=== PATIENT | female | born 1990 | race Caucasian/White ===

== ENCOUNTER 2020-05-25 20:12 | Emergency (ER) | payer OTHER ==
[2020-05-25] MEDS ORDERED: TYLENOL 325 MG PO STA (20:40)
[2020-05-25] MEDS ORDERED: Sodium Chloride 0.9% 1000 ML 1,000 ML IV STA (20:40)
[2020-05-25] MEDS ORDERED: MORPHINE SULFATE 4 MG INJ IV ONE (20:42)
[2020-05-25] MEDS ORDERED: PROTONIX 40 MG IV IV ONE ×2 (20:42→20:50)
[2020-05-25] MEDS ORDERED: Sodium Chloride 0.9% 1000 ML 1,000 ML ONE (20:50)
[2020-05-25] MEDS ORDERED: MORPHINE SULFATE 4 MG INJ ONE (20:51)
[2020-05-25] MEDS ORDERED: TYLENOL 325 MG ONE (20:51)
--- NOTE | 2020-05-25 21:04 | ERPHSYRPT ---
- History of Present Illness Time Seen by Provider: 05/25/20 20:19 Source: patient, EMS Exam Limitations: no limitations Patient Subjective Stated Complaint: pt c/o fever, vomiting, headache, body aches, fatigue Triage Nursing Assessment: pt has cough, fever x3 days, vomiting, headache, body aches, fatigue and diarrhea. Lungs clear, heart tones reg, abd lg/obese with hypoactive bs x4 quad, nontender. Temp 103.9. Pt received zofran 4mg IVP in route via EMS. Physician History: 30 years old morbidly obese female presented in the ER with chief complaint of flulike symptoms with headache, congestion, sore throat, dry cough, nausea and occasional abdominal cramping. She denies any abdominal pain now. Denies any c hest pain or shortness of breath. Having generalized body aches and fatigue. She has diarrhea at her baseline which is not any worse than usual. She vomited once on the way to the ER. Denies any sick contact. Patient has a fever of 103 on presentation. Timing/Duration: day(s) (2), gradual onset, worse Cough Quality/Degree: mild, dry cough Possible Cause: no prior episodes Associated Symptoms: fever, chills, chest pain/soreness, cough, dizziness, headache, nasal congestion Allergies/Adverse Reactions: No Known Drug Allergies Allergy (Unverified 05/25/20 20:38) Home Medications: Fluoxetine HCl 40 mg PO DAILY 05/25/20 [History] Hyoscyamine Sulfate 0.125 mg [Anaspaz 0.125 mg] 1 tab SL Q6H PRN PRN 05/25/20 [History] Metformin HCl Xr 500 mg [Glucophage XR 500 MG] 1,000 mg PO HS 05/25/20 [History] Omeprazole 40 mg PO DAILY 05/25/20 [History] Tizanidine HCl 4 mg [Zanaflex 4 MG] 4 mg PO HS PRN PRN 05/25/20 [History] Hx Tetanus, Diphtheria Vaccination/Date Given: Yes Hx Influenza Vaccination/Date Given: No Hx Pneumococcal Vaccination/Date Given: No Immunizations Up to Date: Yes Travel Risk - International Travel Have you traveled outside of the country in past 3 weeks: No - Coronavirus Screening Symptoms: Fever, Cough: New Onset, Vomiting/Diarrhea, Headaches/Body Aches/Fatigue Close contact with a COVID-19 positive Pt in past 14-21 Days: No - Review of Systems Constitutional: Fever, Chills, Fatigue, Weakness Eyes: No Symptoms Ears, Nose, & Throat: Nose Congestion Respiratory: Cough, Dyspnea Abdominal/Gastrointestinal: No Symptoms, Nausea, Vomiting, Diarrhea Genitourinary Symptoms: No Symptoms Musculoskeletal: Myalgias Skin: No Symptoms Neurological: No Symptoms Psychological: No Symptoms Endocrine: No Symptoms Hematologic/Lymphatic: No Symptoms Immunological/Allergic: No Symptoms - Past Medical History Pertinent Past Medical History: Yes Neurological History: No Pertinent History ENT History: No Pertinent History Cardiac History: No Pertinent History Respiratory History: No Pertinent History Endocrine Medical History: Other Musculoskeletal History: No Pertinent History GI Medical History: Gallbladder Disease History: No Pertinent History Psycho-Social History: No Pertinent History Female Reproductive Disorders: No Pertinent History Other Medical History: fibromyalgia - Past Surgical History Past Surgical History: Yes Neuro Surgical History: No Pertinent History Cardiac: No Pertinent History Respiratory: No Pertinent History Gastrointestinal: No Pertinent History Genitourinary: No Pertinent History Musculoskeletal: Orthopedic Surgery Female Surgical History: No Pertinent History Other Surgical History: EMG. Rt knee meniscus. colooscopy - Social History Smoking Status: Never smoker Exposure to second hand smoke: No Drug Use: none Patient Lives Alone: No - Female History Hx Now: No - Nursing Vital Signs Nursing Vital Signs: Initial Vital Signs Temperature 103.9 F 05/25/20 20:13 Pulse Rate 117 H 05/25/20 20:13 Respiratory Rate 24 05/25/20 20:13 Blood Pressure 188/115 05/25/20 20:13 O2 Sat by Pulse Oximetry 90 L 05/25/20 20:13 Pain Scale Pain Intensity 2 - Physical Exam General Appearance: no apparent distress, alert Eye Exam: PERRL/EOMI, eyes nml inspection Ears, Nose, Throat Exam: TMs normal, pharyngeal erythema Neck Exam: normal inspection, non-tender, supple, full range of motion Respiratory Exam: normal breath sounds, lungs clear Cardiovascular Exam: normal heart sounds, tachycardia Gastrointestinal/Abdomen Exam: soft, normal bowel sounds, No tenderness Back Exam: normal inspection, normal range of motion, No CVA tenderness Extremity Exam: normal inspection, normal range of motion, pelvis stable Neurologic Exam: alert, oriented x 3, cooperative, 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 Skin Exam: normal color SpO2 Interpretation: normal SpO2: 90 O2 Delivery: Room Air - Course EKG Interpreted by Me: RATE ([id number]), Sinus Tach, NORMAL AXIS, NORMAL INTERVALS, NORMAL QRS Ordered Tests: Active Orders 24 hr Category Date Time Status Doctor Of Pharmacy STAT Care 05/25/20 20:41 Active IV Insertion STAT Care 05/25/20 20:40 Active CHEST 1 VIEW (PORTABLE) Stat Exams 05/25/20 20:41 Taken BLOOD CULTURE Stat Lab 05/25/20 21:00 Received CBC W DIFF Stat Lab 05/25/20 21:00 Completed CMP Stat Lab 05/25/20 21:00 Completed HCG QUALITATIVE,SERUM Stat Lab 05/25/20 21:41 Completed INFLUENZA A+B CATHERINE Stat Lab 05/25/20 21:27 Completed Lactic Acid Stat Lab 05/25/20 20:50 Completed Manual Differential NC Stat Lab 05/25/20 21:00 Completed UA W/RFX UR CULTURE Stat Lab 05/25/20 20:41 Ordered Medication Summary Discontinued Medications Generic Name Dose Route Start Last Admin Trade Name Payam PRN Reason Stop Dose Admin Acetaminophen 975 mg 05/25/20 20:40 05/25/20 20:55 Tylenol 325 Mg PO 05/25/20 20:41 975 mg STAT STA Administration Acetaminophen Confirm 05/25/20 20:51 Tylenol 325 Mg Administered 05/25/20 20:52 Dose 975 mg .ROUTE .STK-MED ONE Doxycycline Hyclate 100 mg 05/25/20 22:45 Vibramycin 100 Mg PO 05/25/20 22:46 STAT ONE Sodium Chloride 1,000 mls @ 999 mls/hr 05/25/20 20:40 05/25/20 20:59 Sodium Chloride 0.9% 1000 Ml IV 05/25/20 21:40 999 mls/hr .Q1H1M STA Administration Sodium Chloride Confirm 05/25/20 20:50 Sodium Chloride 0.9% 1000 Ml Administered 05/25/20 20:51 Dose 1,000 mls @ ud .ROUTE .STK-MED ONE Morphine Sulfate 4 mg 05/25/20 20:42 05/25/20 20:56 Morphine Sulfate 4 Mg Inj IV 05/25/20 20:43 4 mg STAT ONE Administration Morphine Sulfate Confirm 05/25/20 20:51 Morphine Sulfate 4 Mg Inj Administered 05/25/20 20:52 Dose 4 mg .ROUTE .STK-MED ONE Pantoprazole Sodium 40 mg 05/25/20 20:42 05/25/20 20:54 Protonix 40 Mg Iv IV 05/25/20 20:43 40 mg STAT ONE Administration Pantoprazole Sodium Confirm 05/25/20 20:50 Protonix 40 Mg Iv Administered 05/25/20 20:51 Dose 40 mg IV .STK-MED ONE Lab/Rad Data: Laboratory Result Diagrams 05/25/20 21:00 05/25/20 21:00 Laboratory Results 05/25/20 05/25/20 05/25/20 Range/Units 21:41 21:27 21:00 WBC (4.0-10.5) K/mm3 RBC (4.1-5.4) M/mm3 Hgb (12.0-16.0) gm/dl Hct (35-47) % MCV (78-100) fl MCH (26-32) pg MCHC (32-36) g/dl RDW (11.5-14.0) % Plt Count (150-450) K/mm3 MPV (7.5-11.0) fl Absolute Granulocytes (1.4-6.9) Sodium 136 L (137-145) mmol/L Potassium 4.0 (3.5-5.1) mmol/L Chloride 100 (98-107) mmol/L Carbon Dioxide 26 (22-30) mmol/L Anion Gap 14.1 (5-15) MEQ/L BUN 10 (7-17) mg/dL Creatinine 0.67 (0.52-1.04) mg/dL Estimated GFR > 60.0 ML/MIN Glucose 111 H (74-106) mg/dL Lactic Acid (0.4-2.0) Calcium 9.3 (8.4-10.2) mg/dL Total Bilirubin 1.60 H (0.2-1.3) mg/dL AST 71 H (14-36) U/L ALT 44 H (0-35) U/L Alkaline Phosphatase 74 (38-126) U/L Serum Total Protein 8.1 (6.3-8.2) g/dL Albumin 4.5 (3.5-5.0) g/dL Serum , Qual NEGATIVE (Negative) Influenza Type A Ag NEGATIVE (NEGATIVE) Influenza Type B Ag NEGATIVE (NEGATIVE) 05/25/20 05/25/20 Range/Units 21:00 20:50 WBC 7.8 (4.0-10.5) K/mm3 RBC 4.91 (4.1-5.4) M/mm3 Hgb 15.7 (12.0-16.0) gm/dl Hct 45.4 (35-47) % MCV 92.5 (78-100) fl MCH 32.0 (26-32) pg MCHC 34.6 (32-36) g/dl RDW 12.8 (11.5-14.0) % Plt Count 229 (150-450) K/mm3 MPV 10.7 (7.5-11.0) fl Absolute Granulocytes 5.67 (1.4-6.9) Sodium (137-145) mmol/L Potassium (3.5-5.1) mmol/L Chloride (98-107) mmol/L Carbon Dioxide (22-30) mmol/L Anion Gap (5-15) MEQ/L BUN (7-17) mg/dL Creatinine (0.52-1.04) mg/dL Estimated GFR ML/MIN Glucose (74-106) mg/dL Lactic Acid 3.0 H (0.4-2.0) Calcium (8.4-10.2) mg/dL Total Bilirubin (0.2-1.3) mg/dL AST (14-36) U/L ALT (0-35) U/L Alkaline Phosphatase (38-126) U/L Serum Total Protein (6.3-8.2) g/dL Albumin (3.5-5.0) g/dL Serum , Qual (Negative) Influenza Type A Ag (NEGATIVE) Influenza Type B Ag (NEGATIVE) - Progress Progress: improved, re-examined Air Movement: good Blood Culture(s) Obtained: Yes Counseled pt/family regarding: lab results, diagnosis, need for follow-up, rad results - Departure Departure Disposition: Home Clinical Impression: Viral syndrome Condition: Stable Critical Care Time: No Referrals: HANNAH PRYOR MD [ACTIVE STAFF] - Follow Up with PCP/3 days Instructions: Fever, Adult (DC) Additional Instructions: Take Tylenol as needed for fever. Keep yourself well-hydrated. Follow-up with primary care for reevaluation. Return to ER for any worsening. Prescriptions: Albuterol 8 gm Mdi Hfa [Ventolin Hfa MDI] 8 gm IH Q4H #1 [email or web address] Doxycycline Hyclate 100 mg [Vibramycin 100 MG] 100 mg PO BID #14 tab
[2020-05-25 21:33] LABS: Absolute Neutrophil Ct (ANC) 5.67 (1.4-6.9); Hematocrit 45.4 % (35-47); Hemoglobin 15.7 gm/dl (12.0-16.0); Mean Cell Volume 92.5 fl (78-100); Mean Corpuscular Hgb Concent. 34.6 g/dl (32-36); Mean Platelet Volume 10.7 fl (7.5-11.0); Platelet Count 229 K/mm3 (150-450); Red Blood Count 4.91 M/mm3 (4.1-5.4); Red Cell Distribution Width 12.8 % (11.5-14.0); White Blood Count 7.8 K/mm3 (4.0-10.5)
[2020-05-25 21:47] LABS: ALBUMIN 4.5 g/dL (3.5-5.0); ALKALINE PHOSPHATASE 74 U/L (38-126); ANION GAP 14.1 MEQ/L (5-15); BLOOD UREA NITROGEN 10 mg/dL (7-17); CHLORIDE 100 mmol/L (98-107); Calcium 9.3 mg/dL (8.4-10.2); Carbon Dioxide 26 mmol/L (22-30); Creatinine 1 0.67 mg/dL (0.52-1.04); EST GLOMERULAR FILTRATION RATE > 60.0 ML/MIN; Glucose 111 mg/dL (74-106); SGOT/AST 71 U/L (14-36); SGPT/ALT 44 U/L (0-35); SODIUM 136 mmol/L (137-145); Total Protein 8.1 g/dL (6.3-8.2)
[2020-05-25 22:11] LABS: INFLUENZA A NEGATIVE (NEGATIVE); INFLUENZA B NEGATIVE (NEGATIVE)
[2020-05-25] MEDS ORDERED: Vibramycin 100 MG PO ONE (22:45)
[2020-05-25] MEDS ORDERED: Vibramycin 100 MG ONE (22:52)
[2020-05-25 23:32] LABS: Eosinophil 3 % (0.00-3.0); Lymphocytes 20 % (24-44); Monocyte 8 % (0.0-12.0); Neutrophils 69 % (36.0-66.0); Platelet Estimate NORMAL (NORMAL); Total Cells Counted 100
[2020-05-26 00:32] VITALS: BP 115/78; PULSE 88; O2SAT 96
--- NOTE | 2020-05-26 08:37 | XRAY ---
Indication: Fever and weakness. Comparison: None Portable chest demonstrates normal heart, lungs, and bony thorax with incidental mild right hemidiaphragm elevation.
== END 2020-05-26 00:38 | disposition home or self-care (01) ==
LOC: ED 20:12
DX: B34.9 Viral infection, unspecified (principal); R50.9 Fever, unspecified; R51.9 Headache, unspecified; R07.9 Chest pain, unspecified; R42 Dizziness and giddiness; R05 Cough
CPT/HCPCS: 36000; 36415; 71045; 80053; 81025; 83605; 85025; 87040; 87400; 93005; 93041; 96360; 96374; 96375; 99284; U0003; J2270; A9270-GY

== ENCOUNTER 2020-05-27 11:26 | Inpatient (IN) | payer OTHER ==
--- NOTE | 2020-05-27 12:07 | ERPHSYRPT ---
- History of Present Illness Historian: patient Exam Limitations: no limitations Patient Subjective Stated Complaint: abdominal pain with vomiting since Saturday. body aches since Saturday Triage Nursing Assessment: . Timing/Duration: day(s) (4) Activities at Onset: none Quality: aching Abdominal Pain Onset Location: generalized abdomen, flank Pain Radiation: back Severity of Pain-Max: moderate Severity of Pain-Current: moderate Modifying Factors: Improves With: vomiting Associated Symptoms: back, fever/chills, loss of appetite, nausea, vomiting, weakness Previous symptoms: same symptoms as today, recently seen, recently treated Hx Tetanus, Diphtheria Vaccination/Date Given: Yes Hx Influenza Vaccination/Date Given: No Hx Pneumococcal Vaccination/Date Given: No <LACEY LIRA - Last Filed: 05/27/20 12:47> <GENESIS DRISCOLL - Last Filed: 05/27/20 15:40> - History of Present Illness Time Seen by Provider: 05/27/20 11:45 Physician History: This is a morbidly obese white female who is 30 years old and has a history of diabetes, fibromyalgia, gastroesophageal reflux disease and returns to this emergency department because of weakness, abdominal pain, bilateral flank pain that is worsened over the last 4 days. Patient was seen in this emergency department on 05/25/2020 and was diagnosed with a viral syndrome. At that time she was having symptoms of cough, fever as high as 103.9 F, vomiting, headache, body aches, fatigue and diarrhea. Patient states now that she does not have diarrhea, her body aches have improved as has her fever. She denies shortness of breath and she denies cough. However the vomiting, abdominal pain and back p ain are persistent. Patient was tested for influenza a and B and those results were negative. She had a COVID-19 test performed 48 hours ago and the results are still pending. Patient was discharged to home on 05/25/2020 with a prescription for albuterol inhaler and doxycycline. (LACEY LIRA) Allergies/Adverse Reactions: amoxicillin [From Augmentin] Allergy (Severe, Verified 05/27/20 11:49) reports hives and trouble breathing clavulanic acid [From Augmentin] Allergy (Severe, Verified 05/27/20 11:49) reports hives and trouble breathing Home Medications: Fluoxetine HCl 40 mg PO DAILY 05/25/20 [History] Hyoscyamine Sulfate 0.125 mg [Anaspaz 0.125 mg] 1 tab SL Q6H PRN PRN 05/25/20 [History] Metformin HCl Xr 500 mg [Glucophage XR 500 MG] 1,000 mg PO HS 05/25/20 [History] Omeprazole 40 mg PO DAILY 05/25/20 [History] Tizanidine HCl 4 mg [Zanaflex 4 MG] 4 mg PO HS PRN PRN 05/25/20 [History] Travel Risk - International Travel Have you traveled outside of the country in past 3 weeks: No - Coronavirus Screening Are you exhibiting any of the following symptoms?: Yes Symptoms: Vomiting/Diarrhea, Headaches/Body Aches/Fatigue Close contact with a COVID-19 positive Pt in past 14-21 Days: No <LACEY LIRA - Last Filed: 05/27/20 12:47> - Review of Systems Constitutional: Fever, Weakness Eyes: No Symptoms Ears, Nose, & Throat: No Symptoms Respiratory: No Symptoms Cardiac: No Symptoms Abdominal/Gastrointestinal: Abdominal Pain, Nausea, Vomiting Genitourinary Symptoms: Flank Pain Musculoskeletal: No Symptoms Skin: No Symptoms Neurological: No Symptoms Psychological: No Symptoms Endocrine: No Symptoms Hematologic/Lymphatic: No Symptoms Immunological/Allergic: No Symptoms All Other Systems: Reviewed and Negative <LACEY LIRA - Last Filed: 05/27/20 12:47> - Past Medical History Pertinent Past Medical History: Yes Neurological History: No Pertinent History ENT History: No Pertinent History Cardiac History: No Pertinent History Respiratory History: No Pertinent History Endocrine Medical History: Other Musculoskeletal History: No Pertinent History GI Medical History: Gallbladder Disease History: No Pertinent History Psycho-Social History: No Pertinent History Female Reproductive Disorders: No Pertinent History Other Medical History: fibromyalgia - Past Surgical History Past Surgical History: Yes Neuro Surgical History: No Pertinent History Cardiac: No Pertinent History Respiratory: No Pertinent History Gastrointestinal: No Pertinent History Genitourinary: No Pertinent History Musculoskeletal: Orthopedic Surgery Female Surgical History: No Pertinent History Other Surgical History: EMG. Rt knee meniscus. colooscopy - Social History Smoking Status: Never smoker Exposure to second hand smoke: No Drug Use: none Patient Lives Alone: No - Female History Hx Last Menstrual Period: within last month Hx Now: No <LACEY LIRA - Last Filed: 05/27/20 12:47> - Physical Exam General Appearance: mild distress, alert, anxiety, obese Eye Exam: PERRL/EOMI, eyes nml inspection Ears, Nose, Throat Exam: normal ENT inspection, moist mucous membranes Neck Exam: normal inspection, non-tender, supple, full range of motion Respiratory Exam: normal breath sounds, lungs clear, airway intact, No chest tenderness, No respiratory distress Cardiovascular Exam: regular rate/rhythm, normal heart sounds, normal peripheral pulses Gastrointestinal/Abdomen Exam: soft, normal bowel sounds, tenderness, guarding Pelvic Exam: not done Rectal Exam: not done Back Exam: normal inspection, normal range of motion, CVA tenderness, No vertebral tenderness Extremity Exam: normal inspection, normal range of motion, pelvis stable Neurologic Exam: alert, oriented x 3, cooperative, 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, n ormal mood/affect, nml cerebellar function, nml station & gait, sensation nml Skin Exam: normal color, warm, dry Lymphatic Exam: No adenopathy SpO2 Interpretation: normal SpO2: 98 O2 Delivery: Room Air <LACEY LIRA - Last Filed: 05/27/20 12:47> - Nursing Vital Signs Nursing Vital Signs: Initial Vital Signs Temperature 98.3 F 05/27/20 11:37 Pulse Rate 81 05/27/20 11:37 Respiratory Rate 18 05/27/20 11:37 Blood Pressure 177/102 05/27/20 11:37 O2 Sat by Pulse Oximetry 98 05/27/20 11:37 Pain Scale Pain Intensity 8 - Course Nursing assessment & vital signs reviewed: Yes <LACEY LIRA - Last Filed: 05/27/20 12:47> - Course Nursing assessment & vital signs reviewed: Yes <GENESIS DRISCOLL - Last Filed: 05/27/20 15:40> Ordered Tests: Active Orders 24 hr Category Date Time Status EKG-ER Only STAT Care 05/27/20 12:15 Active IV Insertion STAT Care 05/27/20 12:12 Active Isolation, Initiate & Maintain STAT Care 05/27/20 12:15 Active ABDOMEN AND PELVIS W/0 CONTRAS [CT] Stat Exams 05/27/20 12:35 Completed CHEST 1 VIEW (PORTABLE) Stat Exams 05/27/20 12:14 Completed CHEST WITH CONTRAST [CT] Stat Exams 05/27/20 14:32 Completed AMYLASE Stat Lab 05/27/20 12:08 Completed BLOOD CULTURE Stat Lab 05/27/20 12:50 Received CBC W DIFF Stat Lab 05/27/20 12:08 Completed CMP Stat Lab 05/27/20 12:08 Completed D-DIMER QUANTITATIVE Stat Lab 05/27/20 12:08 Completed Ferritin Stat Lab 05/27/20 12:08 Completed HCG,QUALITATIVE URINE Stat Lab 05/27/20 12:13 Ordered LDH-LACTATE DEHYDROGENASE Stat Lab 05/27/20 12:08 Completed LIPASE Stat Lab 05/27/20 12:08 Completed Lactic Acid Stat Lab 05/27/20 12:12 Completed Manual Differential NC Stat Lab 05/27/20 12:08 Completed [place] Screen Stat Lab 05/27/20 12:08 Completed UA W/RFX UR CULTURE Stat Lab 05/27/20 12:13 Ordered Medication Summary Generic Name Dose Route Start Last Admin Trade Name Freq PRN Reason Stop Dose Admin Dexamethasone Sodium Phosphate 8 mg 05/27/20 15:36 Decadron 10mg Inj. IV 05/27/20 15:37 STAT ONE Discontinued Medications Generic Name Dose Route Start Last Admin Trade Name Freq PRN Reason Stop Dose Admin Hydromorphone HCl 1 mg 05/27/20 12:12 05/27/20 12:24 Hydromorphone 1 Mg/Ml Injection IV 05/27/20 12:13 1 mg STAT ONE Administration Hydromorphone HCl Confirm 05/27/20 12:19 Hydromorphone 1 Mg/Ml Injection Administered 05/27/20 12:20 Dose 1 mg .ROUTE .STK-MED ONE Sodium Chloride 1,000 mls @ 999 mls/hr 05/27/20 12:12 05/27/20 13:28 Sodium Chloride 0.9% 1000 Ml IV 05/27/20 13:12 Infused .Q1H1M STA Infusion Sodium Chloride Confirm 05/27/20 12:19 Sodium Chloride 0.9% 1000 Ml Administered 05/27/20 12:20 Dose 1,000 mls @ ud .ROUTE .STK-MED ONE Ondansetron HCl 4 mg 05/27/20 12:12 05/27/20 12:21 Zofran 4 Mg/2 Ml Vial IV 05/27/20 12:13 4 mg STAT ONE Administration Ondansetron HCl Confirm 05/27/20 12:19 Zofran 4 Mg/2 Ml Vial Administered 05/27/20 12:20 Dose 4 mg .ROUTE .STK-MED ONE Pantoprazole Sodium 40 mg 05/27/20 12:12 05/27/20 12:22 Protonix 40 Mg Iv IV 05/27/20 12:13 40 mg STAT ONE Administration Pantoprazole Sodium Confirm 05/27/20 12:19 Protonix 40 Mg Iv Administered 05/27/20 12:20 Dose 40 mg IV .STK-MED ONE Lab/Rad Data: Laboratory Result Diagrams 05/27/20 12:08 05/27/20 12:08 Laboratory Results 05/27/20 05/27/20 05/27/20 Range/Units 13:41 12:12 12:08 WBC (4.0-10.5) K/mm3 RBC (4.1-5.4) M/mm3 Hgb (12.0-16.0) gm/dl Hct (35-47) % MCV (78-100) fl MCH (26-32) pg MCHC (32-36) g/dl RDW (11.5-14.0) % Plt Count (150-450) K/mm3 MPV (7.5-11.0) fl Segmented Neutrophils (36.0-66.0) % Lymphocytes (Manual) (24-44) % Monocytes (Manual) (0.0-12.0) % Platelet Estimate (NORMAL) RBC Morphology D-Dimer (215-500) ng/mL Sodium (137-145) mmol/L Potassium (3.5-5.1) mmol/L Chloride (98-107) mmol/L Carbon Dioxide (22-30) mmol/L Anion Gap (5-15) MEQ/L BUN (7-17) mg/dL Creatinine (0.52-1.04) mg/dL Estimated GFR ML/MIN Glucose (74-106) mg/dL Lactic Acid 1.4 (0.4-2.0) Calcium (8.4-10.2) mg/dL Ferritin (6.24-137) ng/mL Total Bilirubin (0.2-1.3) mg/dL AST (14-36) U/L ALT (0-35) U/L Alkaline Phosphatase (38-126) U/L Lactate Dehydrogenase (120-246) U/L Serum Total Protein (6.3-8.2) g/dL Albumin (3.5-5.0) g/dL Amylase (30-110) U/L Lipase (23-300) U/L Monoscreen WEAKLY POSITIVE (Negative) SARS-CoV-2 (PCR) NEGATIVE (NEGATIVE) 05/27/20 05/27/20 05/27/20 Range/Units 12:08 12:08 12:08 WBC (4.0-10.5) K/mm3 RBC (4.1-5.4) M/mm3 Hgb (12.0-16.0) gm/dl Hct (35-47) % MCV (78-100) fl MCH (26-32) pg MCHC (32-36) g/dl RDW (11.5-14.0) % Plt Count (150-450) K/mm3 MPV (7.5-11.0) fl Segmented Neutrophils (36.0-66.0) % Lymphocytes (Manual) (24-44) % Monocytes (Manual) (0.0-12.0) % Platelet Estimate (NORMAL) RBC Morphology D-Dimer 1398 H* (215-500) ng/mL Sodium 135 L (137-145) mmol/L Potassium 3.5 (3.5-5.1) mmol/L Chloride 101 (98-107) mmol/L Carbon Dioxide 28 (22-30) mmol/L Anion Gap 9.3 (5-15) MEQ/L BUN 14 (7-17) mg/dL Creatinine 0.67 (0.52-1.04) mg/dL Estimated GFR > 60.0 ML/MIN Glucose 116 H (74-106) mg/dL Lactic Acid (0.4-2.0) Calcium 9.0 (8.4-10.2) mg/dL Ferritin 319 H (6.24-137) ng/mL Total Bilirubin 2.20 H (0.2-1.3) mg/dL AST 97 H (14-36) U/L ALT 60 H (0-35) U/L Alkaline Phosphatase 97 (38-126) U/L Lactate Dehydrogenase 424 H (120-246) U/L Serum Total Protein 7.1 (6.3-8.2) g/dL Albumin 4.0 (3.5-5.0) g/dL Amylase 39 (30-110) U/L Lipase 54 (23-300) U/L Monoscreen (Negative) SARS-CoV-2 (PCR) (NEGATIVE) 05/27/20 Range/Units 12:08 WBC 6.5 (4.0-10.5) K/mm3 RBC 4.49 (4.1-5.4) M/mm3 Hgb 14.3 (12.0-16.0) gm/dl Hct 42.0 (35-47) % MCV 93.5 (78-100) fl MCH 31.8 (26-32) pg MCHC 34.0 (32-36) g/dl RDW 13.0 (11.5-14.0) % Plt Count 176 (150-450) K/mm3 MPV 10.8 (7.5-11.0) fl Segmented Neutrophils 63 (36.0-66.0) % Lymphocytes (Manual) 27 (24-44) % Monocytes (Manual) 10 (0.0-12.0) % Platelet Estimate NORMAL (NORMAL) RBC Morphology NORMAL D-Dimer (215-500) ng/mL Sodium (137-145) mmol/L Potassium (3.5-5.1) mmol/L Chloride (98-107) mmol/L Carbon Dioxide (22-30) mmol/L Anion Gap (5-15) MEQ/L BUN (7-17) mg/dL Creatinine (0.52-1.04) mg/dL Estimated GFR ML/MIN Glucose (74-106) mg/dL Lactic Acid (0.4-2.0) Calcium (8.4-10.2) mg/dL Ferritin (6.24-137) ng/mL Total Bilirubin (0.2-1.3) mg/dL AST (14-36) U/L ALT (0-35) U/L Alkaline Phosphatase (38-126) U/L Lactate Dehydrogenase (120-246) U/L Serum Total Protein (6.3-8.2) g/dL Albumin (3.5-5.0) g/dL Amylase (30-110) U/L Lipase (23-300) U/L Monoscreen (Negative) SARS-CoV-2 (PCR) (NEGATIVE) - Progress Progress: improved, pain not gone completely, re-examined Counseled pt/family regarding: lab results, diagnosis, need for follow-up, rad results <LACEY LIRA - Last Filed: 05/27/20 12:47> - Progress Progress: unchanged Discussed with DrChristi: Other <GENESIS DRISCOLL - Last Filed: 05/27/20 15:40> - Progress Progress Note: 05/27/20 12:47 I reviewed the patient history, condition and pending radiographic and laboratory work-up studies to be followed up on with Dr. Genesis Driscoll. He agrees to follow-up with the studies and to assume care of this patient at shift change. In addition, he will make the patient's final disposition. (LACEY LIRA) - Departure Departure Disposition: Home Critical Care Time: No <LACEY LIRA - Last Filed: 05/27/20 12:47> - Departure Critical Care Time: No <GENESIS DRISCOLL - Last Filed: 05/27/20 15:40> - Departure Clinical Impression: Abdominal pain, Vomiting, Clinical diagnosis of COVID-19 Condition: Stable Referrals: JUAN LUIS WALKER, ECONOMIC DEVELOPMENT MANAGER [Primary Care Provider] -
[2020-05-27] MEDS ORDERED: Hydromorphone 1 mg/ml Injection IV ONE (12:12)
[2020-05-27] MEDS ORDERED: PROTONIX 40 MG IV IV ONE ×2 (12:12→12:19)
[2020-05-27] MEDS ORDERED: Sodium Chloride 0.9% 1000 ML 1,000 ML IV STA (12:12)
[2020-05-27] MEDS ORDERED: Zofran 4 MG/2 ML VIAL IV ONE (12:12)
[2020-05-27] MEDS ORDERED: Sodium Chloride 0.9% 1000 ML 1,000 ML ONE (12:19)
[2020-05-27] MEDS ORDERED: Zofran 4 MG/2 ML VIAL ONE (12:19)
[2020-05-27] MEDS ORDERED: Hydromorphone 1 mg/ml Injection ONE (12:19)
[2020-05-27 12:30] LABS: Hemoglobin 14.3 gm/dl (12.0-16.0); Mean Cell Volume 93.5 fl (78-100); Mean Corpuscular Hemoglobin 31.8 pg (26-32); Mean Platelet Volume 10.8 fl (7.5-11.0); Platelet Count 176 K/mm3 (150-450); Red Blood Count 4.49 M/mm3 (4.1-5.4); White Blood Count 6.5 K/mm3 (4.0-10.5)
[2020-05-27 12:32] LABS: ALKALINE PHOSPHATASE 97 U/L (38-126); AMYLASE 39 U/L (30-110); ANION GAP 9.3 MEQ/L (5-15); BLOOD UREA NITROGEN 14 mg/dL (7-17); CHLORIDE 101 mmol/L (98-107); Carbon Dioxide 28 mmol/L (22-30); Creatinine 1 0.67 mg/dL (0.52-1.04); EST GLOMERULAR FILTRATION RATE > 60.0 ML/MIN; Glucose 116 mg/dL (74-106); LIPASE 54 U/L (23-300); Potassium 3.5 mmol/L (3.5-5.1); SGOT/AST 97 U/L (14-36); SGPT/ALT 60 U/L (0-35); SODIUM 135 mmol/L (137-145); Total Protein 7.1 g/dL (6.3-8.2)
[2020-05-27 12:34] LABS: LDH-LACTATE DEHYDROGENASE 424 U/L (120-246)
--- NOTE | 2020-05-27 12:50 | XRAY ---
Indication: Nausea and vomiting. Multiple contiguous axial images obtained through the abdomen and pelvis without contrast as ordered. Comparison: None Lung bases demonstrates minimal left base fibrosis/scarring. No infiltrate or effusion. Heart is not enlarged. Noncontrasted stomach and bowel loops appear nonobstructed. Normal appendix. No free fluid/air. Fatty hepatomegaly measuring 27.7 cm. Splenomegaly measuring 18.4 cm. Remaining gallbladder, pancreas, adrenal glands, kidneys, ureters, bladder, uterus, and aorta appear unremarkable for noncontrast exam. Small centimeter/subcentimeter periaortic nodes, none pathologically enlarged. Osseous structures intact. No ventral or inguinal hernias. Impression: 1. Fatty hepatomegaly and splenomegaly. 2. Remaining CT abdomen/pelvis without contrast exam is negative.
--- NOTE | 2020-05-27 12:52 | XRAY ---
Indication: Nausea and vomiting. Comparison: May 25, 2020. Portable chest again demonstrates normal heart, lungs, and bony thorax.
[2020-05-27 14:16] LABS: Lymphocytes 27 % (24-44); Monocyte 10 % (0.0-12.0); Neutrophils 63 % (36.0-66.0); Total Cells Counted 100
[2020-05-27 14:17] LABS: Platelet Estimate NORMAL (NORMAL)
--- NOTE | 2020-05-27 15:22 | XRAY ---
Indication: Nausea and vomiting. Elevated d-dimer. Multiple contiguous axial images obtained through the chest using 100 cc Isovue 370 contrast and PE protocol. Comparison: None There is suboptimal opacification of the pulmonary arteries limiting evaluation for pulmonary embolus. No central pulmonary embolus. Heart is not enlarged. Aorta is normal course and caliber. No pathologic mediastinal/hilar lymphadenopathy. Lungs demonstrate minimal bilateral dependent atelectasis and minimal left base fibrosis/scarring. No suspicious pulmonary mass, infiltrate, or effusion. Bony thorax intact. Limited upper abdomen demonstrates fatty hepatomegaly and 17.2 cm splenomegaly. Impression: 1. Pulmonary embolus evaluation limited due to suboptimal contrast opacification. No central pulmonary embolus. 2. No acute cardiopulmonary abnormalities. 3. Incidental fatty hepatomegaly and splenomegaly.
[2020-05-27] MEDS ORDERED: DECADRON 10MG INJ. IV ONE (15:36)
[2020-05-27] MEDS ORDERED: DECADRON 10MG INJ. ONE (15:38)
[2020-05-27] MEDS ORDERED: Zofran 4 MG/2 ML VIAL IV PRN (15:44)
[2020-05-27] MEDS ORDERED: Hydromorphone 1 mg/ml Injection IV PRN (15:44)
[2020-05-27 17:11] LABS: Appearance CLEAR (CLEAR); Bacteria RARE /HPF (NEGATIVE); Bilirubin NEGATIVE (NEGATIVE); Blood LARGE Ery/ul (0-5); Epithelial Cells RARE /HPF (FEW); Glucose NEGATIVE (NEGATIVE); Ketones TRACE (NEGATIVE); Leukocyte Esterase NEGATIVE (NEGATIVE); Mucus SLIGHT /HPF (NEGATIVE); Nitrite NEGATIVE (NEGATIVE); Protein,Urine Dip 30 (Negative); Specific Gravity >1.060 (1.005-1.025); Urobilinogen 4 mg/dL (0-1)
[2020-05-27 17:19] LABS: RBC >101 /HPF (0-2)
[2020-05-27] MEDS: Zofran 4 MG/2 ML VIAL IV PRN (18:40)
[2020-05-27] MEDS ORDERED: TYLENOL EXTRA STRENGTH 500 MG ONE (20:22)
[2020-05-27] MEDS ORDERED: ANASPAZ 0.125 MG SL PRN (20:28)
[2020-05-27] MEDS: TYLENOL EXTRA STRENGTH 500 MG PO PRN (20:29)
[2020-05-27] MEDS: Hydromorphone 1 mg/ml Injection IV PRN (21:12)
[2020-05-27] MEDS ORDERED: Phenergan 25 MG INJ IV ONE (21:25)
[2020-05-28] MEDS: TYLENOL EXTRA STRENGTH 500 MG PO PRN ×3 (03:40→19:56)
[2020-05-28] MEDS: Hydromorphone 1 mg/ml Injection IV PRN ×4 (03:41→19:57)
[2020-05-28 06:12] LABS: Hematocrit 39.5 % (35-47); Hemoglobin 13.4 gm/dl (12.0-16.0); Mean Cell Volume 94.3 fl (78-100); Mean Corpuscular Hgb Concent. 33.9 g/dl (32-36); Mean Platelet Volume 10.7 fl (7.5-11.0); Platelet Count 168 K/mm3 (150-450); Red Blood Count 4.19 M/mm3 (4.1-5.4); White Blood Count 6.2 K/mm3 (4.0-10.5)
[2020-05-28 06:31] LABS: INR 1.38 (0.8-3.0); PROTIME 15.7 SECONDS (9.95-12.35)
[2020-05-28 06:32] LABS: PTT 30.9 SECONDS (25.3-37.0)
[2020-05-28 06:34] LABS: ALBUMIN 3.6 g/dL (3.5-5.0); ALKALINE PHOSPHATASE 103 U/L (38-126); ANION GAP 11.6 MEQ/L (5-15); BLOOD UREA NITROGEN 12 mg/dL (7-17); CHLORIDE 100 mmol/L (98-107); Carbon Dioxide 28 mmol/L (22-30); Creatinine 1 0.62 mg/dL (0.52-1.04); EST GLOMERULAR FILTRATION RATE > 60.0 ML/MIN; Glucose 95 mg/dL (74-106); Potassium 4.1 mmol/L (3.5-5.1); SGOT/AST 76 U/L (14-36); SGPT/ALT 57 U/L (0-35); SODIUM 135 mmol/L (137-145); Total Protein 6.3 g/dL (6.3-8.2)
[2020-05-28] MEDS: HOLD METFORMIN PRODUCTS FOR 48 HOURS MC SCH (07:33)
[2020-05-28] MEDS: Zofran 4 MG/2 ML VIAL IV PRN (07:36)
--- NOTE | 2020-05-28 09:04 | XRAY ---
Indication: Positive Covid 19. Comparison: One day earlier. Portable chest again demonstrates normal heart, lungs, and bony thorax.
[2020-05-28] MEDS ORDERED: NON-FORMULARY ITEM (Fluoxetine Hcl [Fluoxetine Hcl] 40 MG) PO SCH (10:00)
[2020-05-28] MEDS: Pepcid 20 MG VIAL IV SCH (10:42)
[2020-05-28] MEDS: ROCEPHIN 1 Gm-D5w 50 ml Bag** 1 G/50 ML IVPB IV SCH (10:48)
[2020-05-28] MEDS: Prozac 20 MG PO SCH (10:49)
[2020-05-28] MEDS: ENOXAPARIN SODIUM SQ SCH (10:51)
[2020-05-28] MEDS: Sodium Chloride 0.9% 1000 ML 1,000 ML IV SCH (13:18)
[2020-05-28] MEDS ORDERED: Transderm Scop 1.5MG Patch TOP ONE (14:06)
[2020-05-28] MEDS ORDERED: TYLENOL 325 MG PO STA (14:08)
[2020-05-28] MEDS: FLAGYL 500 MG IVPB 500 MG/100 ML BAG IV SCH ×2 (14:27→21:18)
[2020-05-28] MEDS: Ativan 1 MG PO PRN ×2 (14:58→22:20)
--- NOTE | 2020-05-28 18:59 | XRAY ---
Indication: Right upper quadrant pain. Two-dimensional gallbladder sonogram performed. Comparison: None Gallbladder partially contracted without gallstones, wall thickening, or pericholecystic fluid. Common bile duct measures 5.8 mm. No intrahepatic biliary distention. Visualized portions of the liver fatty in echogenicity without focal solid/cystic mass or ascites. Remaining visualized pancreas and right kidney sonographically unremarkable. Right kidney measures 12.7 cm in length. Impression: Fatty liver. Remaining gallbladder sonogram is negative. Comment: Preliminary interpretation was made by [facility]. No critical discrepancy.
[2020-05-28] MEDS: Zanaflex 4 MG PO PRN (22:20)
[2020-05-29] MEDS: FLAGYL 500 MG IVPB 500 MG/100 ML BAG IV SCH ×4 (00:20→18:01)
[2020-05-29] MEDS: Sodium Chloride 0.9% 1000 ML 1,000 ML IV SCH ×3 (00:20→22:16)
[2020-05-29] MEDS: TYLENOL EXTRA STRENGTH 500 MG PO PRN ×2 (00:25→19:36)
[2020-05-29] MEDS: Hydromorphone 1 mg/ml Injection IV PRN ×4 (01:19→17:57)
[2020-05-29] MEDS ORDERED: MOTRIN 400 MG PO PRN ×2 (01:40→01:45)
[2020-05-29] MEDS ORDERED: FLAGYL 500 MG IVPB 500 MG/100 ML BAG IV ONE (06:03)
[2020-05-29 07:16] LABS: Hematocrit 37.8 % (35-47); Hemoglobin 12.5 gm/dl (12.0-16.0); Mean Cell Volume 95.9 fl (78-100); Mean Corpuscular Hemoglobin 31.7 pg (26-32); Mean Corpuscular Hgb Concent. 33.1 g/dl (32-36); Mean Platelet Volume 10.9 fl (7.5-11.0); Platelet Count 136 K/mm3 (150-450); Red Blood Count 3.94 M/mm3 (4.1-5.4); Red Cell Distribution Width 13.4 % (11.5-14.0); White Blood Count 4.9 K/mm3 (4.0-10.5)
[2020-05-29 07:41] LABS: ALBUMIN 3.3 g/dL (3.5-5.0); ALKALINE PHOSPHATASE 166 U/L (38-126); ANION GAP 10.2 MEQ/L (5-15); BLOOD UREA NITROGEN 15 mg/dL (7-17); CHLORIDE 99 mmol/L (98-107); Calcium 8.5 mg/dL (8.4-10.2); Carbon Dioxide 27 mmol/L (22-30); Creatinine 1 0.84 mg/dL (0.52-1.04); EST GLOMERULAR FILTRATION RATE > 60.0 ML/MIN; Glucose 100 mg/dL (74-106); Potassium 3.4 mmol/L (3.5-5.1); SGOT/AST 137 U/L (14-36); SGPT/ALT 84 U/L (0-35); SODIUM 133 mmol/L (137-145); Total Protein 6.4 g/dL (6.3-8.2)
--- NOTE | 2020-05-29 11:53 | PCM.NOTE ---
Date and Time: 05/29/20 1149 Subjective Assessment: Pt. complains of persistent suprapubic and bilateral upper abdominal pain, her d-dimer was elevated and CTA of chest negative for PE, Pt. continues to spike fevers this admission and feeling no better today than prior. - Review of Systems Constitutional: Fever, Chills Eyes: No Symptoms Ears, Nose, & Throat: No Symptoms Respiratory: No Cough, No Short Of Breath Cardiac: No Chest Pain, No Edema, No Syncope Abdominal/Gastrointestinal: Abdominal Pain, Nausea, No Vomiting, No Diarrhea Genitourinary Symptoms: No Dysuria Musculoskeletal: Back Pain, No Neck Pain Skin: No Symptoms, No Rash Neurological: Headache, No Dizziness, No Focal Weakness, No Parasthesia, No Sensory Changes Psychological: No Symptoms Endocrine: No Symptoms Hematologic/Lymphatic: No Symptoms Immunological/Allergic: No Symptoms Objective Exam General Appearance: no apparent distress Neurologic Exam: alert, cooperative Skin Exam: normal color, warm, dry, No rash, No petechiae Eye Exam: PERRL, EOMI, eyes nml inspection Ears, Nose, Throat Exam: normal ENT inspection Neck Exam: normal inspection, non-tender, supple Lymphatic Exam: No adenopathy Respiratory Exam: normal breath sounds, lungs clear, No chest tenderness Cardiovascular Exam: regular rate/rhythm Gastrointestinal/Abdomen Exam: soft, normal bowel sounds, tenderness, No distention (difficult exam secondary to morbid obesity.) OBJECTIVE DATA Vital Signs: Vital Signs - 24 hr Temp Pulse Resp BP Pulse Ox 05/29/20 07:30 97.9 F 69 18 124/60 97 05/29/20 03:35 98.4 F 05/29/20 01:49 102.9 F 05/29/20 00:25 102.5 F 05/29/20 00:00 84 22 95 05/28/20 20:00 98.4 F 84 18 137/82 98 05/28/20 19:56 100.3 F 05/28/20 19:32 96 05/28/20 18:00 20 05/28/20 16:00 100.1 F 88 20 127/60 96 05/28/20 15:44 80 05/28/20 14:27 98 05/28/20 14:00 20 05/28/20 12:00 98.8 F 100 H 20 137/74 94 L Oxygen-Last 24 hours Oxygen Flowrate (L/min)-RT 2 Oxygen Flowrate (L/min)-RT 2 Oxygen Flowrate (L/min)-RT 2 Oxygen Flowrate (L/min)-RT 2 Pain Assessment - Last Documented Pain Intensity 6 Pain Scale Used 0-10 Pain Scale Intake and Output: Intake & Output 05/26/20 05/27/20 05/28/20 05/29/20 11:59 11:59 11:59 11:59 Intake Total 1400 1697 Output Total 1250 Balance 1400 447 Weight 181.2 kg 181.2 kg Lab Results: Lab Results-Last 24 Hours 05/28/20 05/28/20 05/28/20 Range/Units 05:00 12:14 17:43 WBC (4.0-10.5) K/mm3 RBC (4.1-5.4) M/mm3 Hgb (12.0-16.0) gm/dl Hct (35-47) % MCV (78-100) fl MCH (26-32) pg MCHC (32-36) g/dl RDW (11.5-14.0) % Plt Count (150-450) K/mm3 MPV (7.5-11.0) fl D-Dimer (215-500) ng/mL Sodium (137-145) mmol/L Potassium (3.5-5.1) mmol/L Chloride (98-107) mmol/L Carbon Dioxide (22-30) mmol/L Anion Gap (5-15) MEQ/L BUN (7-17) mg/dL Creatinine (0.52-1.04) mg/dL Estimated GFR ML/MIN Glucose (74-106) mg/dL POC Glucometer 104 97 (74 to 106) mg/dL Hemoglobin A1c 4.79 (4.5-6.0) % Calcium (8.4-10.2) mg/dL Total Bilirubin (0.2-1.3) mg/dL AST (14-36) U/L ALT (0-35) U/L Alkaline Phosphatase (38-126) U/L Serum Total Protein (6.3-8.2) g/dL Albumin (3.5-5.0) g/dL 05/28/20 05/29/20 05/29/20 Range/Units 21:42 07:13 07:13 WBC 4.9 (4.0-10.5) K/mm3 RBC 3.94 L (4.1-5.4) M/mm3 Hgb 12.5 (12.0-16.0) gm/dl Hct 37.8 (35-47) % MCV 95.9 (78-100) fl MCH 31.7 (26-32) pg MCHC 33.1 (32-36) g/dl RDW 13.4 (11.5-14.0) % Plt Count 136 L (150-450) K/mm3 MPV 10.9 (7.5-11.0) fl D-Dimer (215-500) ng/mL Sodium 133 L (137-145) mmol/L Potassium 3.4 L (3.5-5.1) mmol/L Chloride 99 (98-107) mmol/L Carbon Dioxide 27 (22-30) mmol/L Anion Gap 10.2 (5-15) MEQ/L BUN 15 (7-17) mg/dL Creatinine 0.84 (0.52-1.04) mg/dL Estimated GFR > 60.0 ML/MIN Glucose 100 (74-106) mg/dL POC Glucometer 80 (74 to 106) mg/dL Hemoglobin A1c (4.5-6.0) % Calcium 8.5 (8.4-10.2) mg/dL Total Bilirubin 2.40 H (0.2-1.3) mg/dL AST 137 H (14-36) U/L ALT 84 H (0-35) U/L Alkaline Phosphatase 166 H (38-126) U/L Serum Total Protein 6.4 (6.3-8.2) g/dL Albumin 3.3 L (3.5-5.0) g/dL 05/29/20 05/29/20 Range/Units 07:13 07:34 WBC (4.0-10.5) K/mm3 RBC (4.1-5.4) M/mm3 Hgb (12.0-16.0) gm/dl Hct (35-47) % MCV (78-100) fl MCH (26-32) pg MCHC (32-36) g/dl RDW (11.5-14.0) % Plt Count (150-450) K/mm3 MPV (7.5-11.0) fl D-Dimer 1334 H* (215-500) ng/mL Sodium (137-145) mmol/L Potassium (3.5-5.1) mmol/L Chloride (98-107) mmol/L Carbon Dioxide (22-30) mmol/L Anion Gap (5-15) MEQ/L BUN (7-17) mg/dL Creatinine (0.52-1.04) mg/dL Estimated GFR ML/MIN Glucose (74-106) mg/dL POC Glucometer 98 (74 to 106) mg/dL Hemoglobin A1c (4.5-6.0) % Calcium (8.4-10.2) mg/dL Total Bilirubin (0.2-1.3) mg/dL AST (14-36) U/L ALT (0-35) U/L Alkaline Phosphatase (38-126) U/L Serum Total Protein (6.3-8.2) g/dL Albumin (3.5-5.0) g/dL Radiology Exams: Radiology Procedures Category Date Time Status ABDOMEN AND PELVIS W/0 CONTRAS [CT] Stat Exams 05/27/20 12:35 Completed CHEST 1 VIEW (PORTABLE) Routine Exams 05/28/20 15:45 Completed CHEST 1 VIEW (PORTABLE) Stat Exams 05/27/20 12:14 Completed CHEST WITH CONTRAST [CT] Stat Exams 05/27/20 14:32 Completed GALLBLADDER [US] Stat Exams 05/28/20 09:47 Completed HIDA-GALL BLADDER [NUCMED] Routine Exams 05/30/20 06:00 Ordered Assessment/Plan (1) Abdominal pain Current Visit: Yes Status: Acute Assessment & Plan: no clear etiology has been found, U/S was not successful although a history of abnormal hida scan in the past. Pt. still spiking fever, will change antibiotics for broader abdominal coverage and send off Covid ab despite 2 negative tests. Code(s): R10.9 - UNSPECIFIED ABDOMINAL PAIN
[2020-05-29] MEDS: HOLD METFORMIN PRODUCTS FOR 48 HOURS MC SCH (12:00)
[2020-05-29] MEDS: Pepcid 20 MG VIAL IV SCH (12:36)
[2020-05-29] MEDS: Prozac 20 MG PO SCH (12:36)
[2020-05-29] MEDS: ENOXAPARIN SODIUM SQ SCH (12:36)
[2020-05-29] MEDS: MOTRIN 400 MG PO PRN (12:36)
[2020-05-29] MEDS ORDERED: HUMALOG SQ PRN (13:00)
[2020-05-29] MEDS: Invanz 1 GM*** 1 G in Sodium Chloride 100ML MINI-BAG PLUS 100 ML IV SCH (14:43)
[2020-05-29] MEDS: Zofran 4 MG/2 ML VIAL IV PRN (17:56)
[2020-05-29] MEDS: Phenergan 25 MG INJ IM PRN (20:23)
[2020-05-29] MEDS: Zanaflex 4 MG PO PRN (21:19)
[2020-05-29] MEDS: Ativan 1 MG PO PRN (21:20)
[2020-05-30] MEDS: FLAGYL 500 MG IVPB 500 MG/100 ML BAG IV SCH ×5 (00:52→22:58)
[2020-05-30] MEDS: Hydromorphone 1 mg/ml Injection IV PRN ×4 (01:41→18:38)
[2020-05-30] MEDS: MOTRIN 400 MG PO PRN ×4 (03:43→22:56)
[2020-05-30 05:28] LABS: ALBUMIN 3.4 g/dL (3.5-5.0); ALKALINE PHOSPHATASE 229 U/L (38-126); AMYLASE 39 U/L (30-110); ANION GAP 6.8 MEQ/L (5-15); BLOOD UREA NITROGEN 11 mg/dL (7-17); CHLORIDE 100 mmol/L (98-107); Calcium 8.4 mg/dL (8.4-10.2); Carbon Dioxide 29 mmol/L (22-30); Creatinine 1 0.67 mg/dL (0.52-1.04); EST GLOMERULAR FILTRATION RATE > 60.0 ML/MIN; Glucose 106 mg/dL (74-106); LIPASE 67 U/L (23-300); Potassium 3.7 mmol/L (3.5-5.1); SGOT/AST 153 U/L (14-36); SGPT/ALT 97 U/L (0-35); SODIUM 132 mmol/L (137-145); Total Protein 6.5 g/dL (6.3-8.2)
[2020-05-30] MEDS: Zofran 4 MG/2 ML VIAL IV PRN ×3 (05:33→18:29)
[2020-05-30] MEDS: Sodium Chloride 0.9% 1000 ML 1,000 ML IV SCH ×4 (05:33→19:33)
[2020-05-30 05:42] LABS: Hemoglobin 12.2 gm/dl (12.0-16.0); Mean Cell Volume 96.1 fl (78-100); Mean Corpuscular Hemoglobin 31.7 pg (26-32); Mean Platelet Volume 11.7 fl (7.5-11.0); Platelet Count 135 K/mm3 (150-450); Red Blood Count 3.85 M/mm3 (4.1-5.4); Red Cell Distribution Width 13.8 % (11.5-14.0); White Blood Count 5.5 K/mm3 (4.0-10.5)
[2020-05-30] MEDS: TYLENOL EXTRA STRENGTH 500 MG PO PRN ×2 (06:13→19:48)
[2020-05-30] MEDS: HOLD METFORMIN PRODUCTS FOR 48 HOURS MC SCH ×2 (07:44→08:57)
[2020-05-30] MEDS: ROCEPHIN 1 Gm-D5w 50 ml Bag** 1 G/50 ML IVPB IV SCH (07:45)
[2020-05-30 08:34] LABS: Slide Review YES
[2020-05-30] MEDS: Prozac 20 MG PO SCH (08:44)
[2020-05-30] MEDS: Pepcid 20 MG VIAL IV SCH (08:44)
[2020-05-30] MEDS: Ativan 1 MG PO PRN (08:44)
--- NOTE | 2020-05-30 08:52 | HP ---
CHIEF COMPLAINT: Abdominal pain, vomiting about the third day, body aching, headaches. HISTORY OF PRESENT ILLNESS: The patient is a 30 year old white female who had the above complaints. She had a COVID test on Saturday and the results were not called back and we obtained them on Saturday morning and they were negative. She had a quick test which was negative on admission Saturday night. She had a HIDA scan, I am not for sure which hospital, several weeks ago which was positive and ultrasound negative. 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 She has had several attacks and this one has been the worse. No vomiting blood. No diarrhea. No high fever. She has had some fever, back pain, chills and lost appetite. The patient states that she has had no exposure to COVID to anybody close nor has she had any international travel. MEDICATIONS: Prozac 40, Anaspaz 0.125 every six hours PRN, Metformin XR 500 mg 2 h.s., Prilosec 40 q.d., Zanaflex 4 mg every six hours PRN leg pain. ALLERGIES: AMOXICILLIN. CLAVULANIC ACID. PAST MEDICAL HISTORY: PAST SURGICAL HISTORY: Right knee meniscus surgery. REVIEW OF SYSTEMS: HEENT: Headache started with the abdominal pain. PULMONARY: No cough. No smoking. No asthma. HEART: No history of heart problems. ABDOMEN: As above, has reflux. EXTREMITIES: The patient has fibromyalgia. History of diabetes. PHYSICAL EXAMINATION: VITAL SIGNS: Temperature 100.4F, pulse 90, respirations 16, blood pressure 140/70. HEENT: Pupils equal and reactive to light. No jaundice. NECK: Supple without adenopathy. CHEST: Clear. CVS: No murmurs or gallops. ABDOMEN: Tender right upper quadrant, slightly tender left upper quadrant. EXTREMITIES: Tender all over with a scar right knee meniscus surgery. SOCIAL HISTORY: She does not smoke. She does not live with anybody who has COVID. LAB DATA AND TESTS: EKG normal. CT of the pelvis and abdomen normal. Electrolytes were normal except sodium 135, potassium 3.5. Lactic acid 1.4. D-dimer was 1,400. Ferritin high at 319. White count 6.5, hemoglobin 14. IMPRESSION: The patient was placed on the COVID unit because the emergency room doctor thought she had clinical diagnosis although no lab diagnosis of COVID-19. I think she has a clinical diagnosis of cholecystitis with fever and slightly elevated liver enzymes, nausea and vomiting. This is repetitive diagnosis from several months ago. I think she should be placed on the floor and made NPO and followed up with a general surgeon. No signs of COVID.
[2020-05-30] MEDS: ENOXAPARIN SODIUM SQ SCH (08:57)
--- NOTE | 2020-05-30 09:25 | XRAY ---
Indication: Abdomen pain. Multiple contiguous axial images obtained through the abdomen and pelvis using 100 cc Isovue 370 contrast. Enteric contrast also used. Comparison: May 27, 2020. Lung bases demonstrates bibasilar fibrosis/scarring without focal infiltrate or effusion. Heart is not enlarged. Contrasted stomach and bowel loops remain nonobstructed with normal appendix. No free fluid/air. Spleen remains enlarged measuring 18.4 cm with now bandlike hypodensity traversing the spleen not well-seen on previous noncontrast exam. This splenic hypodensity demonstrates centripetal enhancement and fills in on delayed imaging favoring hemangioma. Stable fatty hepatomegaly and small nonpathologic periaortic nodes. Remaining gallbladder, pancreas, adrenal glands, kidneys, ureters, bladder, uterus, and aorta are unremarkable. Impression: 1. Splenic hypodensity with centripetal enhancement favoring a hemangioma. 2. Stable splenomegaly and fatty hepatomegaly. 3. Remaining CT abdomen/pelvis with contrast exam is negative. Comment: Preliminary interpretation was made by [facility] who reports splenic injury which I believe is a incidental hemangioma as detailed.
[2020-05-30] MEDS: Invanz 1 GM*** 1 G in Sodium Chloride 100ML MINI-BAG PLUS 100 ML IV SCH (10:07)
--- NOTE | 2020-05-30 10:23 | CONS ---
CONSULT DATE: 05/28/2020 HISTORY: Isamar Tamayo has been admitted with a six day long illness starting back on Saturday. It started with fever and chills. She is morbidly obese. She is still quite under the weather. She is not having an easy time answering questions because she just does not feel well. She is trying to answer. She has fever and chills. She had discomfort in both lower flanks, left and right. At this time she is not having abdominal pain. She had some nausea, some vomiting, some diarrhea. Her urine is reported as cloudy with a culture pending. Her chart is reviewed. She had a mildly elevated white count. Her ultrasound as reported by the broadcast maintenance technician not necessarily showing any major problem. IMPRESSION: I think she has viral issues. She was checked for influenza A and B. Her fast test for COVID was negative and her long test for COVID is still pending. I do not think she has a surgical abdomen or surgical condition.
[2020-05-30 14:16] LABS: Appearance CLEAR (CLEAR); Bilirubin MODERATE (NEGATIVE); Blood NEGATIVE Ery/ul (0-5); Glucose NEGATIVE (NEGATIVE); Ketones TRACE (NEGATIVE); Leukocyte Esterase NEGATIVE (NEGATIVE); Mucus SLIGHT /HPF (NEGATIVE); Nitrite NEGATIVE (NEGATIVE); Protein,Urine Dip 100 (Negative); Specific Gravity 1.024 (1.005-1.025); Urobilinogen 4 mg/dL (0-1)
--- NOTE | 2020-05-30 15:06 | CONS ---
CONSULT DATE: 05/30/2020 HISTORY: This is a patient who my partner was consulted on and I am rounding for him today. The patient was admitted on 05/27/2020 and has been having some on and off mild abdominal pain. She has had fever and is on antibiotics currently Invanz and Flagyl and had continued to have fever. Her UA was negative. Her white blood cell count was normal. Her CT scan does not show an obvious source for the fever. Initially there was concern for possible splenic trauma. However an addendum has been placed on the report and this appears to be an incidental hemangioma. The patient tells me that she has been having on and off pain for months. She saw GI at [place] and they are working her up. They did a colonoscopy which was negative and the biopsies were pending. They also did an EGD which showed gastritis and biopsies were pending. We obtained the initial report from [facility] and I reviewed those. I have not seen final pathology yet. The patient reports no blood in her stool. She does have on and off nausea and sometimes has vomiting. She is not having any vomiting or nausea currently. She is hungry and wants to eat. She had a HIDA scan in the past in 2017 with an ejection fraction of 20%. She was going to have a HIDA today but due to weight restrictions we are not able to do a HIDA scan. The ultrasound of her gallbladder during this admission was on 05/28/2020 and it was negative. Her common bile duct was 5.8 mm which is normal. She also had a CT scan on 05/29/2020 and the final read on this shows incidental splenic hemangioma as well as mildly enlarged spleen and liver with findings consistent with fatty liver. There is no sign of infection or abscess. Her GI tract and the remainder of her organs looked normal on the report. Her white blood cell count as well as her hemoglobin have been normal. Her PLT count is barely low at 135,000. Her bilirubin has been elevated and it was 2.4 and now it is 3.1. There is no direct bili. Her ALT was 97, AST 153. Her creatinine is 0.67. PAST MEDICAL/SURGICAL HISTORY: The patient's past medical history is also significant for being worked up for possible lupus. She has seen multiple physician's including rheumatology, GI and her main medical doctor. Gastritis, diabetes. Right knee surgery. REVIEW OF SYSTEMS: No dysuria. No hematuria. No hematochezia. No blood in the stool at all. Positive nausea. No vomiting currently. Positive fever. Positive flank pain left and right. MEDICATIONS: Medications reviewed in the chart in medication reconciliation. Zanaflex, Prozac, Anaspaz, Metformin, Prilosec. ALLERGIES: AMOXICILLIN. CLAVULANIC ACID. PHYSICAL EXAMINATION: GENERAL: No acute distress. CVS: Regular rate and rhythm. PULMONARY: Nonlabored. ABDOMEN: Soft, very minimally tender left upper quadrant. No rebound. No guarding. Obese. No prior abdominal incision. DIAGNOSIS: Abdominal pain and nausea. The patient has a prior diagnosis of gastritis from her EGD which was recently at [facility]. She also has an elevated total bilirubin. A direct bilirubin has been ordered and is pending. I have also ordered hepatic function panel for tomorrow. Due to her continued flank pain, I did also order urine culture to recheck this especially because she continues to have fever. We will advanced her to clear liquids for now and follow up on the results and her exam tomorrow. Right now her abdominal exam is benign.
[2020-05-30] MEDS: Phenergan 25 MG INJ IM PRN (19:33)
[2020-05-30] MEDS: Zanaflex 4 MG PO PRN (19:48)
[2020-05-31] MEDS: Sodium Chloride 0.9% 1000 ML 1,000 ML IV SCH ×2 (02:13→09:34)
[2020-05-31] MEDS: TYLENOL EXTRA STRENGTH 500 MG PO PRN ×3 (02:13→14:09)
[2020-05-31] MEDS: FLAGYL 500 MG IVPB 500 MG/100 ML BAG IV SCH ×2 (05:10→11:59)
[2020-05-31 05:29] LABS: Hematocrit 37.4 % (35-47); Hemoglobin 12.3 gm/dl (12.0-16.0); Mean Cell Volume 96.6 fl (78-100); Mean Corpuscular Hemoglobin 31.8 pg (26-32); Mean Corpuscular Hgb Concent. 32.9 g/dl (32-36); Mean Platelet Volume 11.9 fl (7.5-11.0); Platelet Count 145 K/mm3 (150-450); Red Blood Count 3.87 M/mm3 (4.1-5.4); Red Cell Distribution Width 14.2 % (11.5-14.0); White Blood Count 6.9 K/mm3 (4.0-10.5)
[2020-05-31 06:02] LABS: ALBUMIN 3.1 g/dL (3.5-5.0); ALKALINE PHOSPHATASE 223 U/L (38-126); ANION GAP 8.6 MEQ/L (5-15); BLOOD UREA NITROGEN 11 mg/dL (7-17); CHLORIDE 101 mmol/L (98-107); Calcium 8.4 mg/dL (8.4-10.2); Carbon Dioxide 28 mmol/L (22-30); Creatinine 1 0.71 mg/dL (0.52-1.04); Direct Bilirubin 2.4 mg/dL (0.0-0.4); EST GLOMERULAR FILTRATION RATE > 60.0 ML/MIN; Glucose 88 mg/dL (74-106); Potassium 3.7 mmol/L (3.5-5.1); SGOT/AST 120 U/L (14-36); SGPT/ALT 83 U/L (0-35); SODIUM 135 mmol/L (137-145); Total Protein 6.4 g/dL (6.3-8.2)
[2020-05-31] MEDS: Zofran 4 MG/2 ML VIAL IV PRN ×2 (06:26→11:55)
[2020-05-31] MEDS: Hydromorphone 1 mg/ml Injection IV PRN ×2 (08:04→11:57)
[2020-05-31] MEDS: Phenergan 25 MG INJ IM PRN (08:20)
[2020-05-31] MEDS: Prozac 20 MG PO SCH (09:35)
[2020-05-31] MEDS: Pepcid 20 MG VIAL IV SCH (09:38)
[2020-05-31] MEDS: Invanz 1 GM*** 1 G in Sodium Chloride 100ML MINI-BAG PLUS 100 ML IV SCH (09:40)
[2020-05-31] MEDS: ENOXAPARIN SODIUM SQ SCH (09:51)
[2020-05-31 16:40] VITALS: BP 139/72; PULSE 72; O2SAT 98
== END 2020-05-31 16:47 | disposition home or self-care (01) | DRG 392 ==
LOC: ED 11:26 → MED SURG 16:56
PROVIDERS: ADMIT Family Medicine; ATTEND Family Medicine
DX: R10.9 Unspecified abdominal pain (principal); R51.9 Headache, unspecified; Z79.899 Other long term (current) drug therapy; D18.03 Hemangioma of intra-abdominal structures; R16.1 Splenomegaly, not elsewhere classified; R16.0 Hepatomegaly, not elsewhere classified; K76.0 Fatty (change of) liver, not elsewhere classified; R11.2 Nausea with vomiting, unspecified
CPT/HCPCS: 36000; 36415; 71045; 71260; 74176; 74177; 76705; 80053; 80074; 81001; 81025; 82150; 82248; 82728; 82947; 83036; 83605; 83615; 83690; 84703; 85025; 85027; 85379; 85610; 85730; 86308; 86769; 87040; 87086; 87400; 93005; 93041; 94762; 96360; 96374; 96375; 99284; 99285; J0696; J1100; J1170; J1335; J1650; J2270; J2405; J2550; U0003; A9270-GY